=== PATIENT | female | born 1965 | race African-American/Black ===

== ENCOUNTER 2023-04-29 21:00 | Emergency (ER) | payer MEDICARE, MEDICAID ==
[~2023-04-29] VITALS: Ht 167.6 cm; Wt 82.0 kg
[2023-04-29 21:07] VITALS: BP 160/80; PULSE 76; RESP 18; O2SAT 99
[2023-04-30] MEDS ORDERED: ACETAMINOPHEN 325MG TABLET PO ONE (01:15)
[2023-04-30 03:14] VITALS: TEMP 98.2
[2023-04-30] MEDS: ACETAMINOPHEN 325MG TABLET PO NR (03:14)
[2023-04-30] MEDS ORDERED: ACET-2708 MT (03:34)
== END 2023-04-30 03:36 | disposition home or self-care (01) ==
LOC: ER 21:00
DX: S09.90XA Unspecified injury of head, initial encounter (principal); M54.50 Low back pain, unspecified; M79.10 Myalgia, unspecified site; M79.631 Pain in right forearm; W18.39XA Other fall on same level, initial encounter; Y93.89 Activity, other specified; Y92.89 Other specified places as the place of occurrence of the external cause; Y99.8 Other external cause status
CPT/HCPCS: 70486; 71045; 73090; 74176; 99284

== ENCOUNTER 2023-06-26 13:50 | Emergency (ER) | payer MEDICARE, MEDICAID ==
[~2023-06-26] VITALS: Ht 172.7 cm; Wt 122.0 kg
[~2023-06-26 13:50] MED LIST: ACET-2708 MT
[2023-06-26 14:03] VITALS: BP 170/100; PULSE 96; TEMP 98.3; O2SAT 98
[2023-06-26] MEDS ORDERED: IBUPROFEN 400MG TABLET PO ONE (17:45)
[2023-06-26] MEDS: IBUPROFEN 600MG TABLET PO NR (18:00)
[2023-06-26] MEDS ORDERED: IBUP-2028 MT (18:00)
[2023-06-26 18:12] VITALS: RESP 18
== END 2023-06-26 18:14 | disposition home or self-care (01) ==
LOC: ER 15:40
DX: I10 Essential (primary) hypertension (principal); M79.605 Pain in left leg; M79.604 Pain in right leg
CPT/HCPCS: 99283